=== PATIENT | male | born 2005 | race Two or more races ===

== ENCOUNTER 2025-03-25 12:20 | Emergency (ER) | payer OTHER, BC ==
[~2025-03-25] VITALS: Ht 182.9 cm; Wt 65.8 kg
[2025-03-25] MEDS ORDERED: ONDANSETRON 4 MG TAB.RAPDIS ONE (13:31)
[2025-03-25] MEDS: ONDANSETRON 4 MG TAB.RAPDIS SL ONE (13:32)
[2025-03-25] MEDS ORDERED: NAPR-1164 PO (13:35)
[2025-03-25 16:05] VITALS: BP 116/72; TEMP 98.6; O2SAT 99
[2025-03-26] MEDS ORDERED: ONDA4TAB5 PO (19:04)
[2025-03-26] MEDS ORDERED: ONDA4TAB11 PO (19:08)
== END 2025-03-25 16:06 | disposition home or self-care (01) ==
LOC: ER 12:26
DX: S13.4XXA Sprain of ligaments of cervical spine, initial encounter (principal); S50.812A Abrasion of left forearm, initial encounter; M54.50 Low back pain, unspecified; M54.6 Pain in thoracic spine; V49.40XA Driver injured in collision with unspecified motor vehicles in traffic accident, initial encounter; Y93.89 Activity, other specified; Y92.488 Other paved roadways as the place of occurrence of the external cause; Y99.8 Other external cause status
CPT/HCPCS: 99284; 70450; 72100; 72074; A6403; Q0162

== ENCOUNTER 2025-03-26 17:37 | Emergency (ER) | payer OTHER, BC ==
[~2025-03-26] VITALS: Ht 182.9 cm; Wt 65.8 kg
[~2025-03-26 17:37] MED LIST: NAPR-1164 PO
[2025-03-26] MEDS ORDERED: ONDA4TAB5 PO (19:04)
[2025-03-26] MEDS ORDERED: ONDA4TAB11 PO (19:08)
[2025-03-26] MEDS ORDERED: KETOROLAC TROMETHAMINE 15 MG/ML VIAL ONE ×2 (19:16→19:20)
[2025-03-26] MEDS: KETOROLAC TROMETHAMINE 15 MG/ML VIAL IM ONE (19:24)
[2025-03-26 19:28] VITALS: BP 128/72; TEMP 98; O2SAT 99
== END 2025-03-26 19:28 | disposition home or self-care (01) ==
LOC: ER 17:39
DX: S13.4XXA Sprain of ligaments of cervical spine, initial encounter (principal); R11.2 Nausea with vomiting, unspecified; V49.49XA Driver injured in collision with other motor vehicles in traffic accident, initial encounter; Y93.89 Activity, other specified; Y92.488 Other paved roadways as the place of occurrence of the external cause; Y99.8 Other external cause status
CPT/HCPCS: 99283; 96372; J1885